=== PATIENT | male | born 1995 | race Two or more races ===

== ENCOUNTER 2023-05-11 09:41 | Outpatient (REF) | payer BC, SELFPAY ==
[2023-05-11 11:36] LABS: Anion Gap 15 (12-20); Blood Urea Nitrogen 11 mg/dL (9-16); Calcium 10.2 mg/dL (8.4-10.2); Carbon Dioxide 27 mmol/L (22-29); Chloride 103 mmol/L (96-108); Estimated Glomerular Filt Rate > 60; Glucose Fasting 95 mg/dL (60-99); Potassium 4.6 mmol/L (3.3-5.1); Sodium 140 mmol/L (135-145)
[2023-05-11 12:09] LABS: Folate 15.6 ng/mL (> or = 4.0); Vitamin B12 1184 pg/mL (200-900)
[2023-05-13 13:08] LABS: IgA 144 mg/dL (47-310); IgG 1300 mg/dL (600-1640); IgM 146 mg/dL (50-300)
== END 2023-05-11 09:42 | disposition home or self-care (01) ==
LOC: HO.LAB 09:41
PROVIDERS: Visit Provider Psychiatry & Neurology Neurology
DX: G62.9 Polyneuropathy, unspecified (principal)
CPT/HCPCS: 36415; 80048; 82607; 82746; 82784; 86334

== ENCOUNTER 2024-05-15 09:08 | Outpatient (REF) | payer BC, SELFPAY ==
--- NOTE | ~2024-05-15 | FL_ITS ---
EXAMINATION: XR BARIUM SWALLOW CLINICAL INFORMATION: Dysphagia. COMPARISON: None available. TECHNIQUE: Routine barium swallow was performed in upright view following oral administration of thick barium and barium coated saltine crackers. Subsequently patient was placed in prone lying position and thin barium was administered. FINDINGS: On oral demonstration of thick barium there is normal perfusion bolus from the oral cavity, pharynx, esophagus into stomach without any evidence of obstruction, narrowing or extrinsic compression. On oral administration of sulci crackers coated with thick barium there is normal mastication and propagation bolus from the oropharynx, esophagus into the stomach. There is mild retention of thick barium in the valleculae and piriform sinuses which clears with subsequent dry swallowing. On oral administration of thin barium in prone lying position there is good distention of the entire pharynx, esophagus without intrinsic filling defect, extrinsic compression or narrowing. The mucosal pattern esophagus is normal. On placing patient in supine lying there is no gastroesophageal reflux or hiatal hernia. FLUOROSCOPY TIME: 1 minute 48 seconds DOSE AREA PRODUCT: 128.1 uGy-m2 (microgray-meter squared) FL/FL barium swallow IMPRESSION: Unremarkable barium swallow exam. Electronically signed by: Ryne Isaacs MD 05/15/2024 03:13 PM EDT
--- OUTSIDE RECORDS SUMMARY | 2024-05-15 10:03 | XMS_ITS ---
Author Name [facility] Organization Unknown Care Team Organization Name Specialty Phone Email Start Date End Da te Office of the [employer] ([facility]) 12/23/2023
--- OUTSIDE RECORDS SUMMARY | 2024-05-15 10:03 | XMS_ITS | Clinical Summary ---
Author Organization Patient Business Ser [facility] [place] Address [address] [place] [address] Care Team Providers Care Deicer Finisher Name Role Phone Denys Cardenas MD Primary Care Provider [phone] Allergies Active Allergy Reactions Criticality Noted Date Comments Doxycycline 01/24/2024 Throat tightness Other Anaphylaxis High 12/25/2018 Paprika Chile peppers Paprika Hives 02/27/2019 Medications cetirizine (ZyrTEC) 10 mg tablet Take 1 Tablet by mouth daily. Active chlorhexidine (Hibiclens) 4 % external liquid Clean feet twice a day 4 Active albuterol HFA (PROAIR HFA ; PROVENTIL HFA ; VENTOLIN HFA) 90 mcg/actuation inhaler Inhale 2 Puffs into the lungs daily as needed for Cough, Wheezing or Shortness of Breath (prior to exercise). 2 Active EPINEPHrine (EpiPen 2-Rubens) 0.3 mg/0.3 mL injection Inject 0.3 mg into the muscle as needed for Other (anaphylactic reaction). 2-pack. Fill with whichever brand is covered by insurance. 2 Active Active Problems Problem Noted Date Diagnosed Date COVID 02/24/2023 Overview (12/20/2023): Covid + 02/24/23 Acute low back pain 11/22/2018 Exercise-induced asthma 05/24/2017 Encounters Date Type Department Care Team Description 03/06/2024 8:30 AM EST Office Visit Internal Medicine - [facility] [address] [place] [address] Ernestina Ma NP Chest pain, unspecified type (Primary Dx); Palpitations; Burning with urination; Screening for cholesterol level 02/22/2024 2:15 PM EST Ancillary Procedure [facility] Cardiology [facility] - [facility] [address] [phone] Chest pain, unspecified type 02/17/2024 8:30 AM EST Ancillary Procedure [facility] Cardiology [place] [address] [address] [phone] Palpitations from Last 3 Months Immunizations Name Administration Dates Next Due DTaP (Infanrix) 6wks to less than 7yo ,09/09/1998,1997,05/22,1997 [id number] (Pentacel) 2mo to less than 5yo 1997,1997,1997 H1N1 Inj Preservative Free 11/30/2008 HPV, Quadrivalent 03/31/2010,09/18/2009,05/29/19 10 Hepatitis A Pediatric (Havri x; Vaqta) 12mo to less than 19yo 04/16/2009,09/11/2008 Hepatitis B Pediatric (Enger ix B; Recombivax HB) to less than 20 yo 01/22/2004,10/23/2003,09/10/2003 IPV Inactivated polio (Ipol) 6wks and older 09/10/2003,1997,1997,05/22,1997 Influenza Quadravalent, MDCK , 0.5ml, preservative free (Flucelvax) 6mo and older 12/09/2022,12/05/2018 MMR, measles mumps and rubel la Live (Priorix; M-M-R II) 12mo and older 09/10/2003,03/16/2000 Meningococcal B, Recombinant (Bexsero) 16yo to less than 24yo 12/01/2017,10/20/2017 Meningococcal MCV4P 02/05/2013,05/01/2008 Pfizer SARS-CoV-2 COVID-19, mRNA, LNP-S, preservative free 07/08/2020,06/16/2020 Pneumococcal polysaccharide 23 valent (Pneumovax 23) 2yo and older 10/02/2018 Td Tetanus diptheria (Tdvax) 7yo and older 09/09/2017 Tdap Tetanus diptheria acell ular pertussis (Boostrix; Adacel) 7yo and older 05/01/2008 Varicella live (Varivax) 12m o and older 05/01/2008,09/10/2003 Surgical History Surgery Date Site/Laterality Comments OTHER SURGICAL HISTORY PROCEDURE: DENIES PREVIOUS SURGERY Medical History Medical History Date Comments Exercise-induced asthma 05/24/2017 DX:Exerc ise-induced asthma History of anaphylaxis 10/02/2018 DX:Histor y of anaphylaxis Family History Medical History Relation Name Comments Asthma Brother Hyperlipidemia Father No Known Problems Grandparent other 3 gr andparents No Known Problems Mother Diabetes Paternal Grandmother Relation Name Status Comments Brother Alive Father Alive Grandparent Alive Mother Alive Paternal Grandmother Alive Social History Tobacco Use Types Packs/Day Years Used Date Smoking Tobacco: Never Smokeless Tobacco: Never Tobacco Cessation:Counseling Given: Not Answered Alcohol Use Standard Drinks/Week Comments No 0 (1 standard drink = 0.6 oz pur e alcohol) Housing Instability Answer Date Recorde d Are you worried that in the next 2 months you may not have stable housing? No 12/29/2023 Food Access & Nutrition Answer Date Rec orded Do you have access to a vari ety of food including fruits and vegetables? Yes 12/29/2023 Access to Healthcare Answer Date Record ed Within the last 3 months, ho w many times did you visit the emergency department for your medical care? 1 12/29/2023 Health Literacy Answer Date Recorded How often do you need to hav e someone help you when you read instructions, pamphlets, or other written material from your doctor or pharmacy? Never 12/29/2023 Caregiver: How often do you need to have someone help you when you read instructions, pamphlets, or other written material from your doctor or pharmacy? Not on file 12/29/2023 Financial Risk Answer Date Recorded How hard is it for you to pa y for the very basics like food, housing, medical care, and air conditioning / heating? Not very hard 12/29/2023 Transportation Answer Date Recorded Has the lack of transportati on kept you from meetings, work, or from getting things needed for daily living? No Has the lack of transportati on kept you from medical appointments or from getting medications? No 12/29/2023 Social Isolation Answer Date Recorded How often do you feel lonely or isolated from th ose around you? Never 12/29/2023 Food Risk Answer Date Recorded Within the past 12 months we worried whether our food would run out before we got money to buy more. Never true 12/29/2023 Within the past 12 months th e food we bought just didn't last and we didn't have money to get more. Never true 12/29/2023 Dependent Care Answer Date Recorded Do you need help finding or paying for care for your loved ones. For example, rn maternal child or elderly care for an older adult? No 12/29/2023 Education Answer Date Recorded Do you think completing more education or training, like finishing a GED, going to college, or learning a trade, would be helpful for you? No 12/29/2023 Employment and Income Answer Date Recor ded During the last four weeks, have you been actively looking for work? No 12/29/2023 Living Situation Answer Date Recorded What is your living situation? 1 02/27/2023 Sex and Gender Information Value Date Recorded Sex Assigned at Male 10/02/2021 9:07 AM EDT Legal Sex Male 8:34 AM EDT Gender Identity Male 10/02/2021 9:07 AM EDT Sexual Orientation Straight 10/02/2021 9: 07 AM EDT Obstetrics History Last Filed Vital Signs Vital Sign Reading Time Taken Comments Blood Pressure 112/72 03/06/2024 8:23 AM EST Pulse 75 03/06/2024 8:23 AM EST Temperature 36 ??C (96.8 ??F) 01/19/2024 5:12 PM EST Respiratory Rate 16 12/31/2023 11:32 AM EST Oxygen Saturation 98% 01/19/2024 5:12 PM EST Inhaled Oxygen Concentration - - Weight 85.8 kg (189 lb 3.2 oz) 03/06/2024 8:23 A M EST Height 177.8 cm (5' 10 ) 02/22/2024 2:17 PM EST Body Mass Index 27.15 02/22/2024 2:17 PM EST Plan of Treatment Upcoming Encounters Date Type Department Care Team (Late st Contact Info) Description 07/04/2024 8:30 AM EDT Office Visit Internal Medicine - [address] [phone] Ernestina Ma NP [address] [place] [id number] Health Maintenance Due Date Last Done Comments Pneumococcal Vaccine: Pediatrics (0 to 5 Years) and At-Risk Patients (6 to 64 Years) (2 of 2 - PCV) 10/03/2019 10/02/2018 COVID-19 Vaccine ( season) 2023 07/08/2020, 06/16/2020 Influenza Vaccine (Season Ended) 2024 12/09/2022, 12/05/2018, 11/30/2008 Social Influencers of Health Screening 12/28/2024 12/29/2023 Depression Screening 03/06/2025 03/06/2024 DTaP,Tdap,and Td Vaccines (8 - Td or Tdap) 09/10/2027 09/09/2017, 05/01/2008, 09/10/2003, Additional history exists Cholesterol Screening (Lipid Panel) 03/06/2029 03/06/2024, 11/08/2023, 11/08/2023 HIB Vaccines Aged Out 1997, 06/08, 1997 No longer eligible based on patient's age to complete this topic IPV Vaccines Completed 09/10/2003, 12/08, 1997, Additional history exists MMR Vaccines Completed 09/10/2003, 03/16/2000 Hepatitis B Vaccines Completed 01/22/2004, 10/23/2003, 09/10/2003 Varicella Vaccines Completed 05/01/2008, 09/10/2003 Hepatitis A Vaccines Completed 04/16/2009, 09/12/19 09 HPV Vaccines Completed 03/31/2010, 09/07, 05/28/2009 Meningococcal ACWY Vaccine Completed 02/05/2013, Meningococcal B Vaccine Completed 12/01/2017, 10/20 HIV Screening Completed 01/24/2024, 100 02/2023, 11/08/2023 Hepatitis C Screening Completed 01/24/2024, 024 RSV Immunization Patients Under 20 months Aged Out No longer eligible based on patient's age to complete this topic Procedures Procedure Name Priority Date/Time Associated Diagnosis Comments LIPID PANEL WITH REFLEX TO DIRECT LDL Routine 03/06/2024 9:29 AM EST Screening for cholesterol level STRESS TEST ONLY EXERCISE Routine 02/22/2024 3:21 PM EST Chest pain, unspecified type CARDIAC HOLTER MONITOR (REPORT GENERATED IN HOUSE) Routine 02/17/2024 8:46 AM EST Palpitations HEPATITIS PANEL, ACUTE WITH REFLEX TO CONFIRMATION Routine 01/24/2024 9:29 AM EST Burning with urination HIV 1, 2 ANTIBODY, P24 ANTIGEN WITH REFLEX TO DIFFERENTIATION Routine 01/24/2024 9:29 AM EST Burning with urination from Last 3 Months or Most Recently Relevant to Health Maintenance Results * (ABNORMAL) Lipid panel with reflex to direct LDL (03/06/2024 9:29 AM EST) Cholesterol 211(H) 0 - 200 mg/dL LAB CHEMISTRY METHOD 03/06/2024 1:09 PM [facility] Triglycerides 99 0 - 150 mg/dL LAB CHEMISTRY METHOD 03/06/2024 1:09 PM [facility] HDL 62 >=40 mg/dL LAB CHEMISTRY METHOD 03/06/2024 1:09 PM [facility] LDL Calculated 129(H) 0 - 100 mg/dL LAB CHEMISTRY METHOD 03/06/2024 1:09 PM [facility] VLDL Cholesterol Ariel 19.8 mg/dL LAB CHEMISTRY METHOD 03/06/2024 1:[address] [facility] Non HDL Chol. (LDL+VLDL) 149(H) <145 mg/dL LAB CHEMISTRY METHOD 03/06/2024 1:[address] [facility] Chol/HDL Ratio 3.4 0.0 - 4.4 LAB CHEMISTRY METHOD 03/06/2024 1:[address] [facility] Blood Venous blood specimen / Unknown Venipuncture / Unknown 03/06/2024 9:29 AM EST 03/06/2024 9:29 AM EST us Ernestina Ma NP LAB BLOOD ORDERABLES Final Resul t [facility] [address] [place] [address], * Exercise stress test (02/22/2024 3:21 PM EST) Target HR 164 bpm CV STRESS ONLY Baseline HR 83 bpm CV STRES S ONLY Baseline SBP 116 mmHg CV STRE SS ONLY Baseline DBP 71 mmHg CV STRE SS ONLY O2 sat rest 98 % CV STRES S ONLY Peak HR 180 bpm CV STRESS ONLY Peak SBP 162 mmHg CV STRESS ONLY Peak DBP 80 mmHg CV STRESS ONLY Estimated workload 12.1 METS CV STRESS ONLY Rate Pressure Product 29,160.0 mmHg*bpm CV STRESS ONLY Percent HR 93 % CV STRESS ONLY Exercise/inject ion duration (min) 8 min CV STRESS ONLY Exercise/inject ion duration (sec) 21 sec CV STRESS ONLY Angina Index 0 CV STRE SS ONLY Max HR Percent 93 % CV ST RESS ONLY Castillo Treadmill Score [address] Depression (mm) 0 mm CV STRESS ONLY Anatomical Region Laterality Modality Cardiac Diagnost ic Narrative 02/28/2024 1:04 PM EST ?Stress ECG was normal. ?Exercise stress test was performed. Patient reported no symptoms during the stress test. Exercise capacity was average. Normal blood pressure response. ?Stress: The test was stopped because the patient experienced fatigue. Blood pressure demonstrated a normal response. Heart rate demonstrated a normal response. The patient reported no symptoms during the stress test. Normal stress test at over 90% of the MPHR. ??No ischemic electrocardiogram changes or symptoms. ??Exercise capacity was only average for 29-year-old. Stress Findings A Andrea protocol stress test was performed. Overall, the patient's exercise capacity was average. Total stress time was 8 min and 21 sec. The patient experienced no angina during the test. The test was stopped because the patient experienced fatigue. The Castillo Treadmill Score is 8. The patient's hemodynamic response was adequate for diagnosis. Blood pressure demonstrated a normal response. Heart rate demonstrated a normal response. The patient reported no symptoms during the stress test. ECG 29 yo old male with a history of anxiety referred for complaints of left sided chest pain. The ECG shows normal sinus rhythm. The ECG axis is normal. There were no arrhythmias during stress. There is no ST segment changes during stress. There were no arrhythmias during recovery. The result of the stress ECG was negative for ischemia. Procedure Note Ericka Quevedo PA / Esdras Curtis MD - 02/28/2024 ? ? Stress ECG was normal. ? ? Exercise stress test was performed. Patient reported no symptoms duringthe stress test. Exercise capacity was average. Normal blood pressureresponse. ? ? Stress: The test was stopped because the patient experienced fatigue.Blood pressure demonstrated a normal response. Heart rate demonstrated anormal response. The patient reported no symptoms during the stresstest. Normal stress test at over 90% of the MPHR. No ischemic electrocardiogramchanges or symptoms. Exercise capacity was only average [id number]. Denys Cardenas MD CV STRESS PROCEDURES Erica alvarado Result * CARDIAC HOLTER MONITOR (REPORT GENERATED IN HOUSE) (02/17/2024 8:46 AM EST) Anatomical Region Laterality Modality Cardiac Diagnost ic Narrative 02/21/2024 2:37 PM EST ?Normal sinus rhythm. [facility] DI[facility]NOSTIC [facility]ING DEPARTMENT [address] [facility], [place] [address], [place] [address] TEL: FAX: Type of test: ??24 hour Holter Monitor Date of test: 02/17/24 Ordering provider: Denys Cardenas MD Reason for Test: Palpitations PVCA Charge Gang Weigher Findings: 1: The predominant rhythm was Normal Sinus Rhythm. 2: Rare PACs with one atrial pair. No PVCs. 3: No pauses noted. Longest R-R 1.9 sec. 4: Diary returned with no symptoms noted. Impression: Normal sinus rhythm. ??No significant arrhythmias noted. ??No bradycardia. ??No symptoms to correlate to the patient's palpitations. Denys Cardenas MD CV [facility] Final Result * HIV 1,2 antibody, p24 antigen with reflex to differentiation (01/24/2024 9:29 AM EST) HIV Combo AB/AG Negative Negative LAB CHEMISTRY METHOD 01/24/2024 1:[address] [facility] Blood Venous blood specimen / Unknown Venipuncture / Unknown 01/24/2024 9:29 AM EST 01/24/2024 9:[address] [facility] - 01/24/2024 1:16 PM EST This assay is a 4th generation assay allowing for earlier detection of HIV infection by detecting the presence of the HIV-1 p24 antigen as well as the traditional antibodies to HIV type 1 (including group O) and type 2. ??Use of a 4th generation assay is the current CDC recommendation for HIV screening. Denys Cardenas MD LAB BLOOD ORDERABLES Erica l Result [facility] [address] [place] [address], * Hepatitis panel, acute with reflex to confirmation (01/24/2024 9:29 AM EST) Hepatitis B Surface Ag Negative Negative LAB CHEMISTRY METHOD 01/24/2024 1:[address] [facility] Hepatitis A Antibody IgM Negative Negative LAB CHEMISTRY METHOD 01/24/2024 1:[address] [facility] Hep B Core IgM Negative Negative LAB CHEMISTRY METHOD 01/24/2024 1:[address] [facility] Hepatitis C Antibody Negative Negative LAB CHEMISTRY METHOD 01/24/2024 1:[address] [facility] Blood Venous blood specimen / Unknown Venipuncture / Unknown 01/24/2024 9:29 AM EST 01/24/2024 9:29 AM EST us Denys Cardenas MD LAB BLOOD ORDERABLES Erica l Result [facility] [address] [place] [address], [place] [phone] from Last 3 Months or Most Recently Relevant to Health Maintenance Insurance [facility] ([facility]) Care Teams Deicer Finisher Relationship Specialty Start Date End Date Denys Cardenas MD [address] [place] [id number] PCP - General Internal Medicine 04/01/17
== END 2024-05-15 09:09 | disposition home or self-care (01) ==
LOC: HO.XRAY 09:08
PROVIDERS: Visit Provider Otolaryngology
DX: R13.10 Dysphagia, unspecified (principal)
CPT/HCPCS: 74220

== ENCOUNTER → 2024-05-15 09:10 | Outpatient (BNV) | payer BC, SELFPAY | PROVIDERS: Visit Provider Radiology Diagnostic Radiology | DX: R13.10 Dysphagia, unspecified (principal) | CPT/HCPCS: 74220 ==